=== PATIENT | female | born 1970 | race Caucasian/White ===

== ENCOUNTER → 2020-05-09 11:21 | Outpatient (BNVA) | payer OTHER, SELFPAY | PROVIDERS: PCP Internal Medicine; Referring Provider Internal Medicine; Visit Provider Hospitalist | DX: Z76.89 Persons encountering health services in other specified circumstances (principal) ==

== ENCOUNTER 2021-09-21 07:57 | Outpatient (REF) | payer BC, SELFPAY ==
--- NOTE | 2021-09-21 09:02 | PFT_ITS ---
Forced vital capacity 90%, FEV1 97%, FEV1/FVC ratio is 85, FEF 25-75 124%. MVV 118%. Post-bronchodilator therapy, there is no significant change. Total lung capacity 91% and residual volume 79%. Diffusion capacity 87%. CONCLUSION: Normal pulmonary function test. No evidence of obstructive or restrictive pulmonary disorder. MD OSMANI Neri/TANNERL / [phone]
== END 2021-09-21 07:58 | disposition home or self-care (01) ==
LOC: HO.RESP 07:57
PROVIDERS: PCP Internal Medicine; Visit Provider Hospitalist
DX: R06.00 Dyspnea, unspecified (principal); J45.909 Unspecified asthma, uncomplicated
CPT/HCPCS: 94060; 94727; 94729

== ENCOUNTER → 2021-10-03 08:35 | Outpatient (BNVA) | payer BC, SELFPAY | PROVIDERS: PCP Internal Medicine; Visit Provider Hospitalist | DX: J45.909 Unspecified asthma, uncomplicated (principal) ==

== ENCOUNTER → 2022-11-08 14:35 | Outpatient (BNVA) | payer BC, SELFPAY | PROVIDERS: PCP Internal Medicine; Visit Provider Hospitalist | DX: J45.909 Unspecified asthma, uncomplicated (principal); J30.9 Allergic rhinitis, unspecified; J38.3 Other diseases of vocal cords; Z79.899 Other long term (current) drug therapy; Z23 Encounter for immunization | CPT/HCPCS: 90471; 90677 ==

== ENCOUNTER 2023-10-21 14:11 | Outpatient (AMB) | payer BC, SELFPAY ==
[2023-10-21 14:19] VITALS: PULSE 63; O2SAT 98; BMI 31.9
--- NOTE | 2023-10-21 14:19 | MHC.OFFVIS ---
Vital Signs 10/21/23 14:19 Height 5 ft 5 in Weight 192 lb BMI 31.9 Pulse 63 Pulse Source Pulse Oximeter Pulse Oximetry (%) 98 Oxygen Delivery Method Room Air Intake Visit Reasons: asthma Respite Care Provider Required: No Allergies doxycycline Allergy (Severe, Verified 10/21/23 14:20) Respiratory Issues levofloxacin Allergy (Severe, Verified 10/21/23 14:20) Respiratory Issues prednisone Allergy (Severe, Verified 10/21/23 14:20) Respiratory Issues shellfish derived Allergy (Severe, Verified 10/21/23 14:20) Rash and Hives Albuterol Allergy (Severe, Uncoded 10/21/23 14:20) Respiratory Issues Ceftin Allergy (Severe, Uncoded 10/21/23 14:20) Rash and Hives Codeine Allergy (Severe, Uncoded 10/21/23 14:20) Rash and Hives Erythromycin Allergy (Severe, Uncoded 10/21/23 14:20) Rash and Hives Fish Allergy (Severe, Uncoded 10/21/23 14:20) Rash and Hives PCN Allergy (Severe, Uncoded 10/21/23 14:20) Rash and Hives Septra DS Allergy (Severe, Uncoded 10/21/23 14:20) Rash and Hives Tree Nuts Allergy (Severe, Uncoded 10/21/23 14:20) Rash and Hives Miralax Allergy (Intermediate, Uncoded 10/21/23 14:20) Rash and Hives HPI Comments Details: The patient is a 52-year-old woman with a known history of severe persistent asthma. She now has been doing significant amount of traveling for her job. During her travels in her breathing becomes worse. Thankfully she does have a portable nebulizer that she uses constantly prior to any flight and after. She continues to use all her respiratory therapy. She also has an EpiPen available. She has followed up with Allergy immunology. There was a question of mast cell released and was re-evaluated for that condition. The patient also has a family history of both eosinophilic pneumonia and also history of eosinophilic esophagitis. Both family members are being treated with them biologic therapy in addition to immunomodulator therapy. Currently the patient is curious to know if she has a eosinophilic phenotype that could be treated. At this point we have to do additional blood work. The patient is already maxed out on respiratory therapy. If the patient does have an eosinophilic phenotype she will be a perfect candidate for biologic therapy with an interleukin 5 inhibitor. We did do allergy testing demonstrating an IgE level of 114 and also significant allergens based on the positivity of her RAST. She did do allergy shots in the past without any significant improvement. She at this point qualifies her Xolair. This will be a good option. The patient is also wondering about Dupixent based on the fact that she has significant eczema this may be helpful. However, her eosinophil level was normal at this time. She is dealing with significant abdominal discomfort. She did go to [facility] ED which he had a CT scan of the abdomen demonstrating basilar atelectasis. She did follow-up with Allergy immunology. He was recommended that she start allergy shots. Therefore she decided to hold off on the Xolair and decided to start allergy shots. I encouraged her to continue doing the allergy shots and she was not getting the improvement that she was hoping for she can always at Xolair to the allergy shots. 05/09/2020 the patient has a telephone visit. Overall she is doing well. She is actually doing very well. She had started taking the allergy shots but then stop during the pandemic. Since she has been indoors her respiratory symptoms and allergies have improved dramatically. When she is outdoors she does use a mask that also helps. She has been using the Symbicort twice a day and she has not had to use any rescue medication. She has also been trying to have some healthy weight loss with some lifestyle changes. Patient will try to slightly decrease the Symbicort does to try to minimize the inhaled steroids to the lowest most effective dose. She has tolerated once a day therapy. Has not required DAVE nor prednisone. No new issues, She is looking forward to the Covid 19 vaccine. 10/03/2021 The patient is here for a pulmonary follow-up visit. Overall the patient has been doing very well since the pandemic. She has not gotten sick and has not had any asthma flare ups. She does continue to use Symbicort. Over the winter time she was able to cut down to 1 puff twice a day. However, now with springtime she did increase it to 2 puffs twice a day. She has not had to use her rescue inhaler. She has been doing the allergy shots. She was doing very well and has been doing very well. She had 1 episode that resulted in some increasing symptoms but has subsided since then. She has already noticed some improvement where she does not have a significant symptoms as she usually does during the springtime. Patient did have pulmonary function studies which we personally reviewed in the office. It appears that she has normal lung mechanics at this time. No evidence of any obstructive airway disease. The patient is being very cautious with the pandemic and avoiding COVID-19. She has been vaccinated. At this point the patient is doing well follow-up in 1 year. If the patient has any issues prior to that she is to call for an evaluation. 10/21/2023 the patient is here for a pulmonary follow-up visit. Overall the patient is doing very well. Had one flare-ups requiring medrol and Zpack. She continues on the Symbicort with good response. She also continues on the allergy shots which have been very effective. She is close to being on the optimum dose for the allergy shots which she will continue. As far as her medications she continues to take medications as prescribed without any adverse effects. The patient will get the pneumonia shot today. No imaging studies are pulmonary function studies needed at this time. Will consider additional studies the next visit in a year's time. The patient does have a trip planned to [facility]. [place] [address] [place]. I will provide the patient additional Medrol that she can use for altitude sickness prophylaxis. [facility] Medical History (Updated 10/21/23 @ 14:22 by Mauro Calhoun MD) Vocal cord dysfunction Glaucoma Chronic allergic rhinitis Asthma Family History (Updated 05/09/20 @ 11:35 by Mauro Calhoun MD) Father No problems noted. Social History (Updated 10/03/21 @ 08:44 by PANCHO Barahona) Patient Tobacco Use Status: Never used Tobacco Review of Systems Const Denies night sweats and Reports weight gain ENT Denies change in voice, Denies lip swelling, Denies mouth pain, Reports nasal congestion, Reports nasal discharge and Denies tongue swelling Card Denies chest pain Resp Reports cough GI Denies abdominal pain Musc Denies no additional complaints Neuro Denies Neuro-related abnormal movements Psych Denies no additional complaints Osmany/Lymph Denies easy bleeding and Denies lymphadenopathy Aller/Immun Denies lip swelling and Denies tongue swelling Physical Exam Vital Signs: Last Vital Signs Pulse 63 10/21/23 14:19 Pulse Ox 98 10/21/23 14:19 Oxygen Delivery Method Room Air 10/21/23 14:19 BMI result Body Mass Index 31.9 Const General: alert Neck Neck: Yes normal visual inspection, Yes full ROM and Yes no lymphadenopathy Chest Chest palpation & inspection: normal inspection of the chest Resp Auscultation: clear to auscultation bilaterally Cardio Rate: regular rate Rhythm: regular rhythm Heart sounds: S1 normal heart sound present and S2 normal heart sound present GI Palpation (GI): Soft to palpation and nontender Auscultation: normal bowel sounds Skin General skin exam: rashes and/or lesions noted Assessment & Plan Assessment & Plan (1) Asthma: Code(s): J45.909 - Unspecified asthma, uncomplicated Category: Medical Qualifiers: Asthma complication type: uncomplicated Asthma persistence: persistent Asthma severity: moderate Qualified Code(s): J45.40 - Moderate persistent asthma, uncomplicated Plan: continue Symbivort Contnue singulair (2) Chronic allergic rhinitis: Code(s): J30.9 - Allergic rhinitis, unspecified Category: Medical Plan: Allergy therapy (3) Vocal cord dysfunction: Comment: better Code(s): J38.3 - Other diseases of vocal cords Category: Medical Plan Continue Symbicort Short-acting beta agonist as needed Continue Rajani Continue Astelin nasal spray Continue with allergy shots medrol for altitude sickness prophylaxis Follow-up in 1 year Medications: New methylprednisolone (Medrol) Take 2 tabs by mouth twice a day x 4 days, then 1 tab twice a day x 4 days 24 tabs 0RF 8 days azithromycin 500 mg PO DAILY 5 tabs 0RF 5 days Coding Level of Care Code Est Pt Level 4 (19246) Diagnoses Moderate persistent asthma without complication J45.40 Asthma complication type: uncomplicated Asthma persistence: persistent Asthma severity: moderate Chronic allergic rhinitis J30.9 Vocal cord dysfunction J38.3 Time Spent (min) 16
== END 2023-10-21 14:42 | disposition home or self-care (01) ==
PROVIDERS: PCP Internal Medicine; Visit Provider Hospitalist
DX: J45.40 Moderate persistent asthma, uncomplicated (principal); J30.9 Allergic rhinitis, unspecified; J38.3 Other diseases of vocal cords
CPT/HCPCS: 99214

== ENCOUNTER → 2023-10-21 14:11 | Outpatient (BNVA) | payer BC, SELFPAY | PROVIDERS: PCP Internal Medicine; Visit Provider Hospitalist ==

== ENCOUNTER 2023-11-04 15:25 | Outpatient (AMB) | payer BC, SELFPAY ==
[2023-11-04 15:30] VITALS: BP 118/74; PULSE 88; O2SAT 98; BMI 31.4
--- NOTE | 2023-11-04 15:30 | A.OFFVIS_ITS ---
Vital Signs 11/04/23 15:30 Height 5 ft 5 in Weight 188 lb 7.924 oz BMI 31.4 BP 118/74 Blood Pressure Location Rt brachial Position Sitting Pulse 88 Pulse Source Pulse Oximeter Pulse Oximetry (%) 98 Oxygen Delivery Method Room Air Intake Visit Reasons: Covid + 10/22 / Asthma Allergies doxycycline Allergy (Severe, Verified 11/04/23 15:34) Respiratory Issues levofloxacin Allergy (Severe, Verified 11/04/23 15:34) Respiratory Issues prednisone Allergy (Severe, Verified 11/04/23 15:34) Respiratory Issues shellfish derived Allergy (Severe, Verified 11/04/23 15:34) Rash and Hives Albuterol Allergy (Severe, Uncoded 11/04/23 15:34) Respiratory Issues Ceftin Allergy (Severe, Uncoded 11/04/23 15:34) Rash and Hives Codeine Allergy (Severe, Uncoded 11/04/23 15:34) Rash and Hives Erythromycin Allergy (Severe, Uncoded 11/04/23 15:34) Rash and Hives Fish Allergy (Severe, Uncoded 11/04/23 15:34) Rash and Hives PCN Allergy (Severe, Uncoded 11/04/23 15:34) Rash and Hives Septra DS Allergy (Severe, Uncoded 11/04/23 15:34) Rash and Hives Tree Nuts Allergy (Severe, Uncoded 11/04/23 15:34) Rash and Hives Miralax Allergy (Intermediate, Uncoded 11/04/23 15:34) Rash and Hives HPI HPI Covid + 10/22 / Asthma: Details: Concha is a pleasant 52 year old female, never smoker, with underlying asthma, allergic rhinitis and vocal cord dysfunction. At baseline, she is well controlled on Symbicort, Rajani and allergen immunotherapy. Today she presents for an acute visit. She reports on 10/22 she was COVID +, received Paxlovid but unfortunately developed hives and discontinued. She then had worsening symptoms on 10/24 seen at urgent care through [facility], with reported unremarkable CXR and given methylprednisolone and duoneb. Symptoms minimally improved and received a zpak as well as methylprednisolone from Dr. Calhoun on 10/27. She completed both medications and continues with persistent dry cough, chest tightness, wheezing and dyspnea. She denies chills or fevers. [facility] Medical History (Updated 10/21/23 @ 14:22 by Mauro Calhoun MD) Vocal cord dysfunction Glaucoma Chronic allergic rhinitis Asthma Family History (Updated 05/09/20 @ 11:35 by Mauro Calhoun MD) Father No problems noted. Social History Patient Tobacco Use Status: Never used Tobacco Review of Systems Const Denies chills, Denies excessive sweating, Denies fever(s), Denies headache(s) and Denies night sweats Eyes Denies dry eyes, Denies irritation and Denies itchy eyes ENT Reports Normal hearing present, Denies headache(s), Denies nasal congestion, Denies nasal discharge, Denies post nasal drip and Denies sore throat Card Denies chest pain, Denies chest pain at rest, Denies chest pain with activity, Denies claudication, Denies leg edema, Denies orthopnea and Denies paroxysmal nocturnal dyspnea Resp Denies chest congestion, Denies excessive phlegm production, Denies pain on in spiration, Denies pain with cough and Denies stridor Musc Denies myalgias Neuro Reports Normal hearing present and Denies headache(s) Endo Denies excessive sweating Osmany/Lymph Denies lymphadenopathy Aller/Immun Denies itchy eyes and Denies seasonal rhinorrhea Physical Exam Vital Signs: Last Vital Signs Pulse 88 11/04/23 15:30 BP 118/74 11/04/23 15:30 Pulse Ox 98 11/04/23 15:30 Oxygen Delivery Method Room Air 11/04/23 15:30 BMI result Body Mass Index 31.4 Const General: cooperative, no acute distress, well developed and alert Orientation/consciousness: patient oriented x3 Limitations: no limitations HEENT Head: Yes normal to inspection, Yes normocephalic and Yes atraumatic Ears: hearing grossly normal bilaterally and external ears normal Eyes General: appearance normal, both eyes and all related structures Eyelids: Yes eyelids normal Sclerae: sclerae normal EOM: EOMs intact bilaterally Neck Neck: Yes normal visual inspection and Yes no lymphadenopathy Lymphatic: no lymphadenopathy noted Chest Chest palpation & inspection: normal inspection of the chest Resp Other: persistent dry cough throughout visit and postexhalation cough on exam Effort & Inspection: normal respiratory effort, able to speak in complete sentences, no audible wheezes, no stridor, not tachypneic, no tripod positioning and no use of accessory muscles Auscultation: diminished lung sounds Cardio Jugular venous distension: no JVD Rate: regular rate Rhythm: regular rhythm Skin Other: warm, dry General skin exam: no rashes or lesions noted Neuro General: patient oriented x3 Cranial nerves: Yes Normal hearing present Cognition (Neuro): normal cognition Gait exam (Neuro): Normal gait present Extrem General: Yes normal to inspection, Yes capillary refill normal, Yes no clubbing, cyanosis or edema and Yes no pedal edema Psych Appearance: grossly normal and well kempt Speech and movement: Normal speech and movement present and Clear speech present Affect: normal affect Attitude: cooperative Thought process: Normal thought process present Thought content: Normal thought content present Insight: Good insight present (Psych) Judgement: Good judgement present (Psych) Assessment & Plan Assessment & Plan (1) Asthma: Code(s): J45.909 - Unspecified asthma, uncomplicated Category: Medical Qualifiers: Asthma severity: moderate Asthma persistence: persistent Asthma complication type: uncomplicated Qualified Code(s): J45.40 - Moderate per sistent asthma, uncomplicated (2) Chronic allergic rhinitis: Code(s): J30.9 - Allergic rhinitis, unspecified Category: Medical (3) Vocal cord dysfunction: Comment: better Code(s): J38.3 - Other diseases of vocal cords Category: Medical Plan Patient with persistent dry cough and postexhalation cough on exam. She was previously improving on methylprednisolone but once discontinued symptoms returned. Will send in another prescription. She is aware if symptoms do not improve to call office. Also recommended to continue to use duoneb PRN. All questions were answered and patient is in agreement of plan. Will follow up for regularly scheduled appointment with Dr. Calhoun or sooner if needed. Medications: New ipratropium-albuterol 0.5 mg-3 mg(2.5 mg base)/3 mL 3 mL inhalation Q6H PRN 180 mL 0RF wheezing Refilled methylprednisolone (Medrol (Rgeg)) PO PER PKG DIR 21 ea 0RF 6 days Coding Level of Care Code Est Pt Level 4 (76861) Diagnoses Moderate persistent asthma without complication J45.40 Asthma severity: moderate Asthma persistence: persistent Asthma complication type: uncomplicated Chronic allergic rhinitis J30.9 Vocal cord dysfunction J38.3
== END 2023-11-04 16:16 | disposition home or self-care (01) ==
PROVIDERS: PCP Internal Medicine; Visit Provider Nurse Practitioner Family
DX: J45.40 Moderate persistent asthma, uncomplicated (principal); J30.9 Allergic rhinitis, unspecified; J38.3 Other diseases of vocal cords
CPT/HCPCS: 99214

== ENCOUNTER → 2023-11-04 15:25 | Outpatient (BNVA) | payer BC, SELFPAY | PROVIDERS: PCP Internal Medicine; Visit Provider Nurse Practitioner Family ==

== ENCOUNTER 2023-11-12 14:10 | Outpatient (AMB) | payer BC, SELFPAY ==
[2023-11-12 14:19] VITALS: PULSE 90; O2SAT 96; BMI 30.3
--- NOTE | 2023-11-12 14:19 | A.OFFVIS_ITS ---
Vital Signs 11/12/23 14:19 Height 5 ft 5 in Weight 182 lb BMI 30.3 Pulse 90 Pulse Source Pulse Oximeter Pulse Oximetry (%) 96 Oxygen Delivery Method Room Air Intake Visit Reasons: sick visit Intake Note: Patient had COVID 10/23/23 recheck negative as of today still experience severe sinus and headache. Allergies doxycycline Allergy (Severe, Verified 11/12/23 14:22) Respiratory Issues levofloxacin Allergy (Severe, Verified 11/12/23 14:22) Respiratory Issues prednisone Allergy (Severe, Verified 11/12/23 14:22) Respiratory Issues shellfish derived Allergy (Severe, Verified 11/12/23 14:22) Rash and Hives Albuterol Allergy (Severe, Uncoded 11/12/23 14:22) Respiratory Issues Ceftin Allergy (Severe, Uncoded 11/12/23 14:22) Rash and Hives Codeine Allergy (Severe, Uncoded 11/12/23 14:22) Rash and Hives Erythromycin Allergy (Severe, Uncoded 11/12/23 14:22) Rash and Hives Fish Allergy (Severe, Uncoded 11/12/23 14:22) Rash and Hives PCN Allergy (Severe, Uncoded 11/12/23 14:22) Rash and Hives Septra DS Allergy (Severe, Uncoded 11/12/23 14:22) Rash and Hives Tree Nuts Allergy (Severe, Uncoded 11/12/23 14:22) Rash and Hives Miralax Allergy (Intermediate, Uncoded 11/12/23 14:22) Rash and Hives HPI Comments Details: The patient is a 53-year-old woman with a known history of severe persistent asthma. She now has been doing significant amount of traveling for her job. During her travels in her breathing becomes worse. Thankfully she does have a portable nebulizer that she uses constantly prior to any flight and after. She continues to use all her respiratory therapy. She also has an EpiPen available. She has followed up with Allergy immunology. There was a question of mast cell released and was re-evaluated for that condition. The patient also has a family history of both eosinophilic pneumonia and also history of eosinophilic esophagitis. Both family members are being treated with them biologic therapy in addition to immunomodulator therapy. Currently the patient is curious to know if she has a eosinophilic phenotype that could be treated. At this point we have to do additional blood work. The patient is already maxed out on respiratory therapy. If the patient does have an eosinophilic phenotype she will be a perfect candidate for biologic therapy with an interleukin 5 inhibitor. We did do allergy testing demonstrating an IgE level of 114 and also significant allergens based on the positivity of her RAST. She did do allergy shots in the past without any significant improvement. She at this point qualifies her Xolair. This will be a good option. The patient is also wondering about Dupixent based on the fact that she has significant eczema this may be helpful. However, her eosinophil level was normal at this time. She is dealing with significant abdominal discomfort. She did go to [facility] ED which he had a CT scan of the abdomen demonstrating basilar atelectasis. She did follow-up with Allergy immunology. He was recommended that she start allergy shots. Therefore she decided to hold off on the Xolair and decided to start allergy shots. I encouraged her to continue doing the allergy shots and she was not getting the improvement that she was hoping for she can always at Xolair to the allergy shots. 05/09/2020 the patient has a telephone visit. Overall she is doing well. She is actually doing very well. She had started taking the allergy shots but then stop during the pandemic. Since she has been indoors her respiratory symptoms and allergies have improved dramatically. When she is outdoors she does use a mask that also helps. She has been using the Symbicort twice a day and she has not had to use any rescue medication. She has also been trying to have some healthy weight loss with some lifestyle changes. Patient will try to slightly decrease the Symbicort does to try to minimize the inhaled steroids to the lowest most effective dose. She has tolerated once a day therapy. Has not required DAVE nor prednisone. No new issues, She is looking forward to the Covid 19 vaccine. 10/03/2021 The patient is here for a pulmonary follow-up visit. Overall the patient has been doing very well since the pandemic. She has not gotten sick and has not had any asthma flare ups. She does continue to use Symbicort. Over the winter time she was able to cut down to 1 puff twice a day. However, now with springtime she did increase it to 2 puffs twice a day. She has not had to use her rescue inhaler. She has been doing the allergy shots. She was doing very well and has been doing very well. She had 1 episode that resulted in some increasing symptoms but has subsided since then. She has already noticed some improvement where she does not have a significant symptoms as she usually does during the springtime. Patient did have pulmonary function studies which we personally reviewed in the office. It appears that she has normal lung mechanics at this time. No evidence of any obstructive airway disease. The patient is being very cautious with the pandemic and avoiding COVID-19. She has been vaccinated. At this point the patient is doing well follow-up in 1 year. If the patient has any issues prior to that she is to call for an evaluation. 10/21/2023 the patient is here for a pulmonary follow-up visit. Overall the patient is doing very well. Had one flare-ups requiring medrol and Zpack. She continues on the Symbicort with good response. She also continues on the allergy shots which have been very effective. She is close to being on the opt imum dose for the allergy shots which she will continue. As far as her medications she continues to take medications as prescribed without any adverse effects. The patient will get the pneumonia shot today. No imaging studies are pulmonary function studies needed at this time. Will consider additional studies the next visit in a year's time. The patient does have a trip planned to [facility]. [place] [phone] [place]. I will provide the patient additional Medrol that she can use for altitude sickness prophylaxis. 11/12/2023 the patient is here for sick visit. About a month ago she was diagnosed with COVID-19. The patient did go on antiviral therapy. Then after she did develop significant asthma. She did require Medrol Greg in addition to azithromycin. She was evaluated in the office. Her asthma seems to be better. She completed the prednisone. But now she has significant sinusitis. Significant sinus pressure. Moderate severity. She is looking for some relief. She has a trip in a few weeks to them. She has multiple allergies to medications. The patient does need to be allergy tested to see which ones in fact her allergies. She has tolerated doxycycline in the past. More of an adverse reaction as opposed to an allergy. Therefore will go ahead and start the to treat her for postviral bacterial infections. Specially with sinusitis. The patient also will go on some Sudafed and some Afrin. She does have significant inflammation of the sinuses at this time. Her respiratory exam is reassuring. She already swab negative for COVID x2. No additional testing is needed at this time. The patient will call if no better. [facility] Medical History (Updated 11/12/23 @ 23:22 by Mauro Calhoun MD) Vocal cord dysfunction Glaucoma Chronic allergic rhinitis Asthma Family History (Updated 05/09/20 @ 11:35 by Mauro Calhoun MD) Father No problems noted. Social History Patient Tobacco Use Status: Never used Tobacco Review of Systems Const Reports difficulty sleeping, Reports headache(s) and Denies night sweats Eyes Denies change in vision ENT Denies change in voice, Reports headache(s), Denies lip swelling, Denies mouth pain, Reports nasal congestion, Reports nasal discharge, Reports nasal obstruction, Reports sinus pain, Reports sinus pressure and Denies tongue swelling Card Denies chest pain Resp Reports cough GI Denies abdominal pain Musc Denies no additional complaints Neuro Denies Neuro-related abnormal movements and Reports headache(s) Psych Denies no additional complaints Osmany/Lymph Denies easy bleeding and Denies lymphadenopathy Aller/Immun Denies lip swelling and Denies tongue swelling Physical Exam Vital Signs: Last Vital Signs Pulse 90 11/12/23 14:19 Pulse Ox 96 11/12/23 14:19 Oxygen Delivery Method Room Air 11/12/23 14:19 BMI result Body Mass Index 30.3 Const General: alert HEENT General nose exam: Abnormal mucous membranes and turbinates present erythematous Face and sinus: Yes sinus tenderness Neck Neck: Yes normal visual inspection, Yes full ROM and Yes no lymphadenopathy Chest Chest palpation & inspection: normal inspection of the chest Resp Auscultation: clear to auscultation bilaterally Cardio Rate: regular rate Rhythm: regular rhythm Heart sounds: S1 normal heart sound present and S2 normal heart sound present GI Palpation (GI): Soft to palpation and nontender Auscultation: normal bowel sounds Skin General skin exam: rashes and/or lesions noted Assessment & Plan Assessment & Plan (1) Sinusitis: Code(s): J32.9 - Chronic sinusitis, unspecified Category: Medical Qualifiers: Sinusitis location: pansinusitis Chronicity: acute Recurrence: non- recurrent Qualified Code(s): J01.40 - Acute pansinusitis, unspecified (2) Asthma: Code(s): J45.909 - Unspecified asthma, uncomplicated Category: Medical Qualifiers: Asthma severity: moderate Asthma persistence: persistent Asthma complication type: uncomplicated Qualified Code(s): J45.40 - Moderate persisten t asthma, uncomplicated Plan: continue Symbivort Contnue singulair (3) COVID-19: Code(s): U07.1 - COVID-19 Category: Medical (4) Chronic allergic rhinitis: Code(s): J30.9 - Allergic rhinitis, unspecified Category: Medical Plan: Allergy therapy (5) Vocal cord dysfunction: Comment: better Code(s): J38.3 - Other diseases of vocal cords Category: Medical Plan Start Doxycycline start pseudophed start Afrin x 5 days Continue Symbicort Short-acting beta agonist as needed Continue Rajani Continue Astelin nasal spray Continue with allergy shots, should be testing for abx allergies Follow-up in 3-4 months Medications: New pseudoephedrine HCl ER 120 mg PO Q12H 60 tabs 1RF 30 days doxycycline monohydrate 100 mg PO BID 28 tabs 0RF 14 days Coding Level of Care Code Est Pt Level 4 (14265) Diagnoses Acute non-recurrent pansinusitis J01.40 Sinusitis location: pansinusitis Chronicity: acute Recurrence: non-recurrent Moderate persistent asthma without complication J45.40 Asthma severity: moderate Asthma persistence: persistent Asthma complication type: uncomplicated COVID-19 U07.1 Chronic allergic rhinitis J30.9 Vocal cord dysfunction J38.3
== END 2023-11-12 14:45 | disposition home or self-care (01) ==
PROVIDERS: PCP Internal Medicine; Visit Provider Hospitalist
DX: J01.40 Acute pansinusitis, unspecified (principal); J45.40 Moderate persistent asthma, uncomplicated; U07.1 COVID-19; J30.9 Allergic rhinitis, unspecified; J38.3 Other diseases of vocal cords
CPT/HCPCS: 99214

== ENCOUNTER → 2023-11-12 14:10 | Outpatient (BNVA) | payer BC, SELFPAY | PROVIDERS: PCP Internal Medicine; Visit Provider Hospitalist ==

== ENCOUNTER 2023-11-25 15:28 | Outpatient (REF) | payer BC, SELFPAY ==
--- NOTE | ~2023-11-25 | XR_ITS ---
EXAMINATION: XR CHEST CLINICAL INFORMATION: Moderate persistent asthma. COVID virus October 21. Feels like she has improved, but not back to normal per patient statement. Changes in temperature and whether and scents trigger symptoms. History of asthma, no smoking, no surgery, no injury. PCP concerned about right lower lobe. COMPARISON: None available. TECHNIQUE: 2 views of the chest were obtained. FINDINGS: Lungs are well inflated. Dextroscoliosis of the thoracic spine with multilevel degenerative changes. Surgical clips in the right upper quadrant. There is no gross pneumothorax. Heart size is normal. No pleural effusion. No focal consolidation. XR/XR chest 2V IMPRESSION: No evidence of pneumonia.
== END 2023-11-25 15:29 | disposition home or self-care (01) ==
LOC: HO.XRAY 15:28
PROVIDERS: Visit Provider Hospitalist
DX: J45.40 Moderate persistent asthma, uncomplicated (principal)
CPT/HCPCS: 71046

== ENCOUNTER 2024-10-13 11:13 | Outpatient (AMB) | payer BC, SELFPAY ==
[2024-10-13 11:17] VITALS: BP 100/60; PULSE 84; O2SAT 98; BMI 29.9
--- NOTE | 2024-10-13 11:17 | MHC.OFFVIS ---
Vital Signs 10/13/24 11:17 Height 5 ft 5 in Weight 179 lb 10.828 oz BMI 29.9 BP 100/60 Blood Pressure Location Rt brachial Position Sitting Pulse 84 Pulse Source Pulse Oximeter Pulse Oximetry (%) 98 Oxygen Delivery Method Room Air Intake Visit Reasons: asthma [employer] Super[employer] Required: No Accompanied by: Self / Same As Patient Allergies doxycycline Allergy (Severe, Verified 11/12/23 14:22) Respiratory Issues levofloxacin Allergy (Severe, Verified 11/12/23 14:22) Respiratory Issues prednisone Allergy (Severe, Verified 11/12/23 14:22) Respiratory Issues shellfish derived Allergy (Severe, Verified 11/12/23 14:22) Rash and Hives Albuterol Allergy (Severe, Uncoded 11/12/23 14:22) Respiratory Issues Ceftin Allergy (Severe, Uncoded 11/12/23 14:22) Rash and Hives Codeine Allergy (Severe, Uncoded 11/12/23 14:22) Rash and Hives Erythromycin Allergy (Severe, Uncoded 11/12/23 14:22) Rash and Hives Fish Allergy (Severe, Uncoded 11/12/23 14:22) Rash and Hives Septra DS Allergy (Severe, Uncoded 11/12/23 14:22) Rash and Hives Tree Nuts Allergy (Severe, Uncoded 11/12/23 14:22) Rash and Hives Miralax Allergy (Intermediate, Uncoded 11/12/23 14:22) Rash and Hives HPI Comments Details: The patient is a 53-year-old woman with a known history of severe persistent asthma. She now has been doing significant amount of traveling for her job. During her travels in her breathing becomes worse. Thankfully she does have a portable nebulizer that she uses constantly prior to any flight and after. She continues to use all her respiratory therapy. She also has an EpiPen available. She has followed up with Allergy immunology. There was a question of mast cell released and was re-evaluated for that condition. The patient also has a family history of both eosinophilic pneumonia and also history of eosinophilic esophagitis. Both family members are being treated with them biologic therapy in addition to immunomodulator therapy. Currently the patient is curious to know if she has a eosinophilic phenotype that could be treated. At this point we have to do additional blood work. The patient is already maxed out on respiratory therapy. If the patient does have an eosinophilic phenotype she will be a perfect candidate for biologic therapy with an interleukin 5 inhibitor. We did do allergy testing demonstrating an IgE level of 114 and also significant allergens based on the positivity of her RAST. She did do allergy shots in the past without any significant improvement. She at this point qualifies her Xolair. This will be a good option. The patient is also wondering about Dupixent based on the fact that she has significant eczema this may be helpful. However, her eosinophil level was normal at this time. She is dealing with significant abdominal discomfort. She did go to [facility] ED which he had a CT scan of the abdomen demonstrating basilar atelectasis. She did follow-up with Allergy immunology. He was recommended that she start allergy shots. Therefore she decided to hold off on the Xolair and decided to start allergy shots. I encouraged her to continue doing the allergy shots and she was not getting the improvement that she was hoping for she can always at Xolair to the allergy shots. 05/09/2020 the patient has a telephone visit. Overall she is doing well. She is actually doing very well. She had started taking the allergy shots but then stop during the pandemic. Since she has been indoors her respiratory symptoms and allergies have improved dramatically. When she is outdoors she does use a mask that also helps. She has been using the Symbicort twice a day and she has not had to use any rescue medication. She has also been trying to have some healthy weight loss with some lifestyle changes. Patient will try to slightly decrease the Symbicort does to try to minimize the inhaled steroids to the lowest most effective dose. She has tolerated once a day therapy. Has not required DAVE nor prednisone. No new issues, She is looking forward to the Covid 19 vaccine. 10/03/2021 The patient is here for a pulmonary follow-up visit. Overall the patient has been doing very well since the pandemic. She has not gotten sick and has not had any asthma flare ups. She does continue to use Symbicort. Over the winter time she was able to cut down to 1 puff twice a day. However, now with springtime she did increase it to 2 puffs twice a day. She has not had to use her rescue inhaler. She has been doing the allergy shots. She was doing very well and has been doing very well. She had 1 episode that resulted in some increasing symptoms but has subsided since then. She has already noticed some improvement where she does not have a significant symptoms as she usually does during the springtime. Patient did have pulmonary function studies which we personally reviewed in the office. It appears that she has normal lung mechanics at this time. No evidence of any obstructive airway disease. The patient is being very cautious with the pandemic and avoiding COVID-19. She has been vaccinated. At this point the patient is doing well follow-up in 1 year. If the patient has any issues prior to that she is to call for an evaluation. 10/21/2023 the patient is here for a pulmonary follow-up visit. Overall the patient is doing very well. Had one flare-ups requiring medrol and Zpack. She continues on the Symbicort with good response. She also continues on the allergy shots which have been very effective. She is close to being on the optimum dose for the allergy shots which she will continue. As far as her medications she continues to take medications as prescribed without any adverse effects. The patient will get the pneumonia shot today. No imaging studies are pulmonary function studies needed at this time. Will consider additional studies the next visit in a year's time. The patient does have a trip planned to [facility] [place]. [place] [phone] [place]. I will provide the patient additional Medrol that she can use for altitude sickness prophylaxis. 11/12/2023 the patient is here for sick visit. About a month ago she was diagnosed with COVID-19. The patient did go on antiviral therapy. Then after she did develop significant asthma. She did require Medrol Greg in addition to azithromycin. She was evaluated in the office. Her asthma seems to be better. She completed the prednisone. But now she has significant sinusitis. Significant sinus pressure. Moderate severity. She is looking for some relief. She has a trip in a few weeks to them. She has multiple allergies to medications. The patient does need to be allergy tested to see which ones in fact her allergies. She has tolerated doxycycline in the past. More of an adverse reaction as opposed to an allergy. Therefore will go ahead and start the to treat her for postviral bacterial infections. Specially with sinusitis. The patient also will go on some Sudafed and some Afrin. She does have significant inflammation of the sinuses at this time. Her respiratory exam is reassuring. She already swab negative for COVID x2. No additional testing is needed at this time. The patient will call if no better. 10/13/2024 the patient is here for a pulmonary follow-up visit. Since we last spoke she has had a very eventful few months which she was admitted to [facility] with a couple strokes. There appeared to be lacunar nature. She had a full workup and no clear etiology of her plastic some she had been on estrogen replacement therapy in addition to that she had an echocardiogram with a bubble study that demonstrated a late bubble but 6 beats after the administration suggesting a potential transpulmonary [id number] shunt. She did see neurology. The ordering a CT scan daily a CT of the pulmonary vessels to see if there is any evidence of any AV malformations be helpful. In addition to that reason repeating the echo will be helpful to get better sense of she does have indeed a [id number] shunt. She also had a loop monitor done and now is having a 2nd monitor to assess for cardiac arrhythmias putting her at risk for thrombo embolic events. After the stroke she has had significant migraines and also vertigo. As far as her breathing she is actually be doing okay she has not had to use her Breo or her rescue inhaler which is reassuring. At this time will have her hold off specially as she is having the monitor done. Also to note she did have an allergic reaction to the dye so she would need to be premedicated prior to the CT with contrast. Patient will follow-up in 3 months if she has any issues prior to this she will call for an earlier assessment. [facility] Medical History (Updated 10/14/24 @ 08:10 by Mauro Calhoun MD) Stroke Vocal cord dysfunction Glaucoma Chronic allergic rhinitis Asthma Family History (Updated 05/09/20 @ 11:35 by Mauro Calhoun MD) Father No problems noted. Social History Patient Tobacco Use Status: Never used Tobacco Review of Systems Const Reports difficulty sleeping, Reports headache(s) and Denies night sweats Eyes Reports change in vision and Reports photophobia ENT Denies change in voice, Reports vertigo, Reports dizziness, Reports headache(s), Denies lip swelling, Denies mouth pain, Reports nasal congestion, Reports nasal discharge, Reports nasal obstruction, Reports sinus pain, Reports sinus pressure and Denies tongue swelling Card Denies chest pain Resp Reports cough GI Denies abdominal pain Musc Denies no additional complaints Neuro Denies Neuro-related abnormal movements, Reports vertigo, Reports dizziness and Reports headache(s) Psych Denies no additional complaints Osmany/Lymph Denies easy bleeding and Denies lymphadenopathy Aller/Immun Denies lip swelling and Denies tongue swelling Physical Exam Vital Signs: Last Vital Signs Pulse 84 10/13/24 11:17 BP 100/60 10/13/24 11:17 Pulse Ox 98 10/13/24 11:17 Oxygen Delivery Method Room Air 10/13/24 11:17 BMI result Body Mass Index 29.9 Const General: alert Eyes Direct Ophthalmoscopy: photophobia Neck Neck: Yes normal visual inspection, Yes full ROM and Yes no lymphadenopathy Chest Chest palpation & inspection: normal inspection of the chest Resp Auscultation: clear to auscultation bilaterally Cardio Rate: regular rate Rhythm: regular rhythm Heart sounds: S1 normal heart sound present and S2 normal heart sound present GI Palpation (GI): Soft to palpation and nontender Auscultation: normal bowel sounds Skin General skin exam: rashes and/or lesions noted Assessment & Plan Assessment & Plan (1) Asthma: Code(s): J45.909 - Unspecified asthma, uncomplicated Category: Medical Qualifiers: Asthma complication type: uncomplicated Asthma persistence: persistent Asthma severity: moderate Qualified Code(s): J45.40 - Moderate persistent asthma, uncomplicated Plan: continue Symbivort Contnue singulair (2) Chronic allergic rhinitis: Code(s): J30.9 - Allergic rhinitis, unspecified Category: Medical Plan: Allergy therapy (3) Vocal cord dysfunction: Comment: better Code(s): J38.3 - Other diseases of vocal cords Category: Medical (4) Stroke: Code(s): I63.9 - Cerebral infarction, unspecified Category: Medical Qualifiers: CVA mechanism: unspecified Qualified Code(s): I63.9 - Cerebral infarction, unspecified Plan Will have CT chest, ideally with contrast (CTA) to assess for AV malfirmations based on the abn buble study. She will f/u with cardiology to reassess ok to hold Breo for now Short-acting beta agonist as needed Continue Rajani Continue Astelin nasal spray Follow-up in 3-4 months Medications: New metoclopramide HCl (Reglan) 5 mg PO BID PRN 30 tabs 0RF nausea and vomiting 30 days meclizine 25 mg PO BID PRN 30 tabs 1RF motion sickness 30 days Coding Level of Care Code Est Pt Level 5 (50260) Diagnoses Moderate persistent asthma without complication J45.40 Asthma complication type: uncomplicated Asthma persistence: persistent Asthma severity: moderate Chronic allergic rhinitis J30.9 Vocal cord dysfunction J38.3 Cerebrovascular accident (CVA), unspecified mechanism I63.9 CVA mechanism: unspecified Time Spent (min) 60
== END 2024-10-13 11:57 | disposition home or self-care (01) ==
LOC: HO.HPS 11:14
PROVIDERS: PCP Internal Medicine; Visit Provider Hospitalist
DX: J45.40 Moderate persistent asthma, uncomplicated (principal); J30.9 Allergic rhinitis, unspecified; J38.3 Other diseases of vocal cords; I63.9 Cerebral infarction, unspecified
CPT/HCPCS: 99215

== ENCOUNTER → 2024-10-13 11:13 | Outpatient (BNVA) | payer BC, SELFPAY | PROVIDERS: PCP Internal Medicine; Visit Provider Hospitalist ==

== ENCOUNTER 2024-12-15 09:08 | Outpatient (AMB) | payer BC, SELFPAY ==
[2024-12-15 09:13] VITALS: BP 80/56; PULSE 86; O2SAT 96; BMI 26.4
--- NOTE | 2024-12-15 09:13 | A.OFFVIS_ITS ---
Vital Signs 12/15/24 09:13 Height 5 ft 5 in Weight 158 lb 11.725 oz BMI 26.4 BP 80/56 L Blood Pressure Location Lt brachial Position Sitting Pulse 86 Pulse Source Pulse Oximeter Pulse Oximetry (%) 96 Oxygen Delivery Method Room Air Intake Visit Reasons: Asthma Physician Vice President Required: No Accompanied by: Self / Same As Patient Allergies doxycycline Allergy (Severe, Verified 12/15/24 09:17) Respiratory Issues levofloxacin Allergy (Severe, Verified 12/15/24 09:17) Respiratory Issues prednisone Allergy (Severe, Verified 12/15/24 09:17) Respiratory Issues shellfish derived Allergy (Severe, Verified 12/15/24 09:17) Rash and Hives Albuterol Allergy (Severe, Uncoded 11/12/23 14:22) Respiratory Issues Ceftin Allergy (Severe, Uncoded 11/12/23 14:22) Rash and Hives Codeine Allergy (Severe, Uncoded 11/12/23 14:22) Rash and Hives Erythromycin Allergy (Severe, Uncoded 11/12/23 14:22) Rash and Hives Fish Allergy (Severe, Uncoded 11/12/23 14:22) Rash and Hives Septra DS Allergy (Severe, Uncoded 11/12/23 14:22) Rash and Hives Tree Nuts Allergy (Severe, Uncoded 11/12/23 14:22) Rash and Hives Miralax Allergy (Intermediate, Uncoded 11/12/23 14:22) Rash and Hives HPI Comments Details: The patient is a 54-year-old woman with a known history of severe persistent asthma. She now has been doing significant amount of traveling for her job. During her travels in her breathing becomes worse. Thankfully she does have a portable nebulizer that she uses constantly prior to any flight and after. She continues to use all her respiratory therapy. She also has an EpiPen available. She has followed up with Allergy immunology. There was a question of mast cell released and was re-evaluated for that condition. The patient also has a family history of both eosinophilic pneumonia and also history of eosinophilic esophagitis. Both family members are being treated with them biologic therapy in addition to immunomodulator therapy. Currently the patient is curious to know if she has a eosinophilic phenotype that could be treated. At this point we have to do additional blood work. The patient is already maxed out on respiratory therapy. If the patient does have an eosinophilic phenotype she will be a perfect candidate for biologic therapy with an interleukin 5 inhibitor. We did do allergy testing demonstrating an IgE level of 114 and also significant allergens based on the positivity of her RAST. She did do allergy shots in the past without any significant improvement. She at this point qualifies her Xolair. This will be a good option. The patient is also wondering about Dupixent based on the fact that she has significant eczema this may be helpful. However, her eosinophil level was normal at this time. She is dealing with significant abdominal discomfort. She did go to [facility] ED which he had a CT scan of the abdomen demonstrating basilar atelectasis. She did follow-up with Allergy immunology. He was recommended that she start allergy shots. Therefore she decided to hold off on the Xolair and decided to start allergy shots. I encouraged her to continue doing the allergy shots and she was not getting the improvement that she was hoping for she can always at Xolair to the allergy shots. 05/09/2020 the patient has a telephone visit. Overall she is doing well. She is actually doing very well. She had started taking the allergy shots but then stop during the pandemic. Since she has been indoors her respiratory symptoms and allergies have improved dramatically. When she is outdoors she does use a mask that also helps. She has been using the Symbicort twice a day and she has not had to use any rescue medication. She has also been trying to have some healthy weight loss with some lifestyle changes. Patient will try to slightly decrease the Symbicort does to try to minimize the inhaled steroids to the lowest most effective dose. She has tolerated once a day therapy. Has not required DAVE nor prednisone. No new issues, She is looking forward to the Covid 19 vaccine. 10/03/2021 The patient is here for a pulmonary follow-up visit. Overall the patient has been doing very well since the pandemic. She has not gotten sick and has not had any asthma flare ups. She does continue to use Symbicort. Over the winter time she was able to cut down to 1 puff twice a day. However, now with springtime she did increase it to 2 puffs twice a day. She has not had to use her rescue inhaler. She has been doing the allergy shots. She was doing very well and has been doing very well. She had 1 episode that resulted in some increasing symptoms but has subsided since then. She has already noticed some improvement where she does not have a significant symptoms as she usually does during the springtime. Patient did have pulmonary function studies which we personally reviewed in the office. It appears that she has normal lung mechanics at this time. No evidence of any obstructive airway disease. The patient is being very cautious with the pandemic and avoiding COVID-19. She has been vaccinated. At this point the patient is doing well follow-up in 1 year. If the patient has any issues prior to that she is to call for an evaluation. 10/21/2023 the patient is here for a pulmonary follow-up visit. Overall the patient is doing very well. Had one flare-ups requiring medrol and Zpack. She continues on the Symbicort with good response. She also continues on the allergy shots which have been very effective. She is close to being on the optimum dose for the allergy shots which she will continue. As far as her medications she continues to take medications as prescribed without any adverse effects. The patient will get the pneumonia shot today. No imaging studies are pulmonary function studies needed at this time. Will consider additional studies the next visit in a year's time. The patient does have a trip planned to [facility]. [place] [address] [place]. I will provide the patient additional Medrol that she can use for altitude sickness prophylaxis. 11/12/2023 the patient is here for sick visit. About a month ago she was diagnosed with COVID-19. The patient did go on antiviral therapy. Then after she did develop significant asthma. She did require Medrol Greg in addition to azithromycin. She was evaluated in the office. Her asthma seems to be better. She completed the prednisone. But now she has significant sinusitis. Significant sinus pressure. Moderate severity. She is looking for some relief. She has a trip in a few weeks to them. She has multiple allergies to medications. The patient does need to be allergy tested to see which ones in fact her allergies. She has tolerated doxycycline in the past. More of an adverse reaction as opposed to an allergy. Therefore will go ahead and start the to treat her for postviral bacterial infections. Specially with sinusitis. The patient also will go on some Sudafed and some Afrin. She does have significant inflammation of the sinuses at this time. Her respiratory exam is reassuring. She already swab negative for COVID x2. No additional testing is needed at this time. The patient will call if no better. 10/13/2024 the patient is here for a pulmonary follow-up visit. Since we last spoke she has had a very eventful few months which she was admitted to [facility] with a couple strokes. There appeared to be lacunar nature. She had a full workup and no clear etiology of her plastic some she had been on estrogen replacement therapy in addition to that she had an echocardiogram with a bubble study that demonstrated a late bubble but 6 beats after the administration suggesting a potential transpulmonary cakup-mk-pqiz shunt. She did see neurology. The ordering a CT scan daily a CT of the pulmonary vessels to see if there is any evidence of any AV malformations be helpful. In addition to that reason repeating the echo will be helpful to get better sense of she does have indeed a leraj-eo-zhij shunt. She also had a loop monitor done and now is having a 2nd monitor to assess for cardiac arrhythmias putting her at risk for thrombo embolic events. After the stroke she has had significant migraines and also vertigo. As far as her breathing she is actually be doing okay she has not had to use her Breo or her rescue inhaler which is reassuring. At this time will have her hold off specially as she is having the monitor done. Also to note she did have an allergic reaction to the dye so she would need to be premedicated prior to the CT with contrast. Patient will follow-up in 3 months if she has any issues prior to this she will call for an earlier assessment. 12/15/2024 the patient is here for a pulmonary follow-up visit. The patient overall having more respiratory symptoms. She has had significant amount of esophagitis and reflux disease after her JOSH. This is resulting in more respiratory symptoms. Moderate severity. She did try the Breo but it caused her to have palpitations so she stopped it. Will go ahead and send her QVAR at this time. In the meantime will treat her reflux a little more aggressive with the omeprazole x1 month and then she can continue the Pepcid at nighttime. Afterwards she can stop the omeprazole and just continue with the Pepcid. In the meantime she did have a documented PFO. She has already had 2 small strokes. Going to follow-up with cardiology to discuss therapeutic options. Her blood pressure today was low 80/50 initially sitting she denied feeling dizzy or having any symptoms. She did have orthostatic blood pressures and her blood pressure did improve to 90/70. She will follow-up with her primary care doctor regarding that. In the meantime the patient did have a CT scan of the chest done at [facility] which we personally reviewed demonstrating a 7 mm pulmonary nodule in the left hemithorax. Will plan to repeat a CAT scan 6 months from then which would be in March. [facility] Medical History (Updated 12/15/24 @ 21:44 by Mauro Calhoun MD) Pulmonary nodule Stroke Vocal cord dysfunction Glaucoma Chronic allergic rhinitis Asthma Family History (Updated 05/09/20 @ 11:35 by Mauro Calhoun MD) Father No problems noted. Social History Patient Tobacco Use Status: Never used Tobacco Review of Systems Const Reports difficulty sleeping, Reports headache(s) and Denies night sweats Eyes Reports change in vision and Reports photophobia ENT Denies change in voice, Reports vertigo, Reports dizziness, Reports headache(s), Denies lip swelling, Denies mouth pain, Reports nasal congestion, Reports nasal discharge, Reports nasal obstruction, Reports sinus pain, Reports sinus pressure and Denies tongue swelling Card Denies chest pain and Reports dyspnea on exertion Resp Reports cough, Reports dyspnea on exertion and Reports wheezing GI Denies abdominal pain Musc Denies no additional complaints Neuro Denies Neuro-related abnormal movements, Reports vertigo, Reports dizziness and Reports headache(s) Psych Denies no additional complaints Osmany/Lymph Denies easy bleeding and Denies lymphadenopathy Aller/Immun Denies lip swelling, Denies tongue swelling and Reports wheezing Physical Exam Vital Signs: Last Vital Signs Pulse 86 12/15/24 09:13 BP 80/56 L 12/15/24 09:13 Pulse Ox 96 12/15/24 09:13 Oxygen Delivery Method Room Air 12/15/24 09:13 BMI result Body Mass Index 26.4 Const General: alert Eyes Direct Ophthalmoscopy: photophobia Neck Neck: Yes normal visual inspection, Yes full ROM and Yes no lymphadenopathy Chest Chest palpation & inspection: normal inspection of the chest Resp Auscultation: diminished lung sounds Cardio Rate: regular rate Rhythm: regular rhythm Heart sounds: S1 normal heart sound present and S2 normal heart sound present GI Palpation (GI): Soft to palpation and nontender Auscultation: normal bowel sounds Skin General skin exam: rashes and/or lesions noted Assessment & Plan Assessment & Plan (1) Chronic allergic rhinitis: Code(s): J30.9 - Allergic rhinitis, unspecified Category: Medical Plan: Allergy therapy (2) Vocal cord dysfunction: Comment: better Code(s): J38.3 - Other diseases of vocal cords Category: Medical (3) Pulmonary nodule: Code(s): R91.1 - Solitary pulmonary nodule Category: Medical (4) Asthma: Code(s): J45.909 - Unspecified asthma, uncomplicated Category: Medical Qualifiers: Asthma severity: moderate Asthma persistence: persistent Asthma complication type: uncomplicated Qualified Code(s): J45.40 - Moderate persistent asthma, uncomplicated Plan: continue Symbivort Contnue singulair (5) Stroke: Code(s): I63.9 - Cerebral infarction, unspecified Category: Medical Qualifiers: CVA mechanism: unspecified Qualified Code(s): I63.9 - Cerebral infarction, unspecified (6) Hypotension: Code(s): I95.9 - Hypotension, unspecified Category: Medical Qualifiers: Hypotension type: other hypotension type Qualified Code(s): I95.89 - Other hypotension Plan Will follow up with cardiology re: PFO ?closure in view of recent dicumented CVA Stop Breo start QVAR Short-acting beta agonist as needed Continue Rajani Continue Astelin nasal spray PPIx [address] chest to f/u 7mm nodule Follow-up in 4-6 months Orders: Orders CT chest wo IV con 03/29/25 R91.1 - Solitary pulmonary nodule Medications: New omeprazole 40 mg PO DAILY 30 caps 1RF 30 days beclomethasone dipropionate 80 mcg/actuation (Qvar RediHaler) 1 inh inhalation BID 10.6 grams 11RF 30 days Coding Level of Care Code Est Pt Level 4 (46131) Complex EM visit Add On G2211 Diagnoses Chronic allergic rhinitis J30.9 Vocal cord dysfunction J38.3 Pulmonary nodule R91.1 Moderate persistent asthma without complication J45.40 Asthma severity: moderate Asthma persistence: persistent Asthma complication type: uncomplicated Cerebrovascular accident (CVA), unspecified mechanism I63.9 CVA mechanism: unspecified Other specified hypotension I95.89 Hypotension type: other hypotension type Time Spent (min) 18
--- OUTSIDE RECORDS SUMMARY | 2024-12-15 09:28 | XMS_ITS | Encounter Summary ---
Author Organization [facility] Address [address] [place] [address] Phone Care Team Providers Care Manager E Commerce Name Role Phone Kalyani Hernandez MD Primary Care Prov ider Kalyani Hernandez MD Primary Care Prov ider Tracey Sher MD Primary Care Provider [phone] Daniele Felix MD Unavailable [phone] Encounter Details Date Type Department Care Team (Late st Contact Info) Description 03/07/2021 Transcribe Orders [facility] [address] [place] [address] Manny Painter MD [address] [place] [id number] [email or web address] Social History Tobacco Use Types Packs/Day Years Used Date Smoking Tobacco: Never Smokeless Tobacco: Never Alcohol Use Standard Drinks/Week Comments No 0 (1 standard drink = 0.6 oz pur e alcohol) Comments No Sex and Gender Information Value Date Recorded Sex Assigned at Female 09/01/2018 7:47 AM EDT Legal Sex Female 7:29 PM EST Gender Identity Female 09/01/2018 7:47 AM EDT Sexual Orientation Straight 09/01/2018 7: 47 AM EDT documented as of this encounter Plan of Treatment Upcoming Encounters Date Type Department Care Team (Late st Contact Info) Description 12/11/2024 Procedure Pass [facility] Cardiology Division [address], [address] [place] [address] 12/11/2024 Procedure Pass [facility] Cardiology Division [address], [address] [place] [address] 12/16/2024 10:00 AM EDT Telemedicine [facility] Gynecology [address] [facility] 4th [address], [address] [place] [address] Mildred Mtz MD [address] [place] [address] [email or web address] 12/16/2024 5:15 PM EDT Office Visit [facility] [address] [place] [address] Tracey Sher MD [address] [place] [phone] Sandor Martinez, PT [address] [place] [address] [email or web address] 12/21/2024 4:00 PM EDT Office Visit [facility] Department of Neurology [address] [facility], 8th Floor, [address] [place] [address] Joshua, Esha Villagomez MD [address] [place] [address] [email or web address] 12/25/2024 3:00 PM EDT Office Visit [facility] [address] [place] [address] Tracey Sher MD [address] [place] [phone] Sandor Martinez, PT [address] [place] [address] 12/30/2024 12:45 PM EDT Office Visit [facility] [address] [place] [address] Tracey Sher MD [address] [phone] Manny [place], PT [address] [place] [address] 01/06/2025 10:15 AM EDT Office Visit [facility] [address] [place] [address] Tracey Sher MD [address] [phone] Manny [place], PT [address] [place] [address] 01/09/2025 10:00 AM EDT Appointment [facility] Cardiology Division [address], [address] [place] [address] Joo Rodriguez MD, PhD [address] [facility] [address] [place] [address] [email or web address] 01/26/2025 4:15 PM EDT Office Visit [facility] Neurology Resident [address] [place] [address] Daniele Felix MD [address] [place] [address] [address] [place] [address] [email or web address] 02/09/2025 8:00 AM EDT Appointment [facility] Cardiology Division [address] [facility], [address] [place] [address] Joo Rodriguez MD, PhD [address] [facility] [address] [place] [address] [email or web address] 03/12/2025 8:00 AM EDT Appointment [facility] Cardiology Division [address] [facility], [address] [place] [address] Joo Rodriguez MD, PhD [address] [address] [email or web address] 04/12/2025 1:30 PM EST Appointment [facility] Cardiology Division [address] [facility], [address] [place] [address] Joo Rodriguez MD, PhD [address] [place] [email or web address] 05/13/2025 10:30 AM EST Appointment [facility] Cardiology Division [address] [facility] [address], [address] [place] [address] Joo Rodriguez MD, PhD [address] [place] [email or web address] 06/13/2025 9:00 AM EST Appointment [facility] Cardiology Division [address] [facility], [address] [place] [address] Joo Rodriguez MD, PhD [address] [address] [email or web address] 07/09/2025 11:30 AM EST Telemedicine [facility] [address] [facility], 4th [address], [address] [place] [address] Amauri Angel MD [address] [place] [address] [email or web address] 07/14/2025 8:00 AM EST Appointment [facility] Cardiology Division [address] [facility], [address] [place] [address] Joo Rodriguez MD, PhD [address] [facility] [address] [place] [address] [email or web address] documented as of this encounter Visit Diagnoses Not on filedocumented in this encounter Additional Health Concerns Infection Onset Date Last Indicated Resolved Time CoV-Risk 08/18/2023 08/18/2023 08/29/2023 1:21 AM EDT CoV-Risk 05/04/2024 05/04/2024 05/15/2024 1:23 AM EST CoV-Risk 05/21/2024 05/21/2024 06/01/2024 1:21 AM EST documented as of this encounter Care Teams Manager E Commerce Relationship Specialty Start Date End Date Kalyani Hernandez MD [address] [place] [phone] PCP - General 07/20/15 11/29/21 Kalyani Hernandez MD [address] [place] [address] [phone] PCP - General Internal Medicine 11/30/21 03/09/24 Tracey Sher MD [address] [place] [phone] PCP - General Family Medicine 03/10/24 Daniele Felix MD [address] [place] [address] LIANG [address] [place] [address] [email or web address] Neurology 11/26/24 documented as of this encounter Additional Source Comments The information contained in this document represents components of the legal health record. It is not the complete legal health record.[facility]
== END 2024-12-15 09:50 | disposition home or self-care (01) ==
LOC: HO.HPS 09:09
PROVIDERS: PCP Internal Medicine; Visit Provider Hospitalist
DX: J30.9 Allergic rhinitis, unspecified (principal); J38.3 Other diseases of vocal cords; R91.1 Solitary pulmonary nodule; J45.40 Moderate persistent asthma, uncomplicated; I63.9 Cerebral infarction, unspecified; I95.89 Other hypotension
CPT/HCPCS: 99214

== ENCOUNTER 2025-02-05 14:17 | Outpatient (REF) | payer BC, SELFPAY ==
[2025-02-09 18:09] LABS: SARS COV2 IgG Positive (Negative)
== END 2025-02-05 14:18 | disposition home or self-care (01) ==
LOC: HO.LAB 14:17
PROVIDERS: PCP Student in an Organized Health Care Education/Training Program; Visit Provider Hospitalist
DX: U07.1 COVID-19 (principal)
CPT/HCPCS: 36415; 86769